=== PATIENT | female | born 1960 | race Caucasian/White ===

== ENCOUNTER → 2021-11-13 | Outpatient (CLI) | payer MEDICAID ==
[~2021-11-13] MED LIST: CATHETER FLUSH 10 ML SYR IV PRN; HOLD METFORMIN - RECEIVED CONTRAST 20 ML VIAL IV SCH; IOHEXOL 350 MG/ML 100 ML (OMNIPAQUE 350) VIAL IV ONE; NS 100 ML (IVPB) BAG IV ONE
[2021-11-13 13:23] LABS: CREATININE SERUM 0.71 MG/DL (0.60-1.30)
--- NOTE | 2021-11-13 18:03 | Diagnostic Imaging Report ---
CLINICAL INDICATIONS: Patient with mass in the left neck marked with BB. Patient has history of smoking. EXAM: Axial CT scan of the neck soft tissue performed with 75 mL of Omnipaque 350 IV contrast. Sagittal and coronal reformatted images. COMPARISON: None. FINDINGS: There is no neck soft tissue mass seen along the left lower aspect of the neck where the BB marker is. There is no significant abnormality in the region. The nasopharynx, oropharynx, and hypopharynx are unremarkable. The thyroid gland is small in size, but otherwise unremarkable. Salivary glands are unremarkable. There is no significant lymphadenopathy. The oropharynx, tongue, sublingual and submandibular regions are unremarkable. There is no lymphadenopathy. There is no significant vascular abnormality involving the neck soft tissue. There are postoperative changes to both globes which may be related to lens implants. Otherwise, both globes are unremarkable. There is C4-C7 anterior cervical disk fusion hardware. Limited visualization of the intracranial structures are unremarkable. Mastoid air cells are clear. Paranasal sinuses are clear. Visualized upper lung quach are clear. IMPRESSION: There is no significant neck soft tissue abnormality. There is no abnormality in the region of the left neck BB-marker. Dictated by: Dictated on workstation # [id number]
== END ==
LOC: RAD FS 12:45
PROVIDERS: ATTEND Otolaryngology Otolaryngology/Facial Plastic Surgery
DX: R22.1 Localized swelling, mass and lump, neck (principal); Z87.891 Personal history of nicotine dependence
CPT/HCPCS: 36415; 70491; 82565; 84520; Q9967